=== PATIENT | male | born 1975 | race Caucasian/White ===

== ENCOUNTER 2018-04-23 21:25 | Emergency (ER) | payer BC ==
--- NOTE | 2018-04-23 21:48 | EDM.PDOC ---
ED HPI GENERAL MEDICAL PROBLEM - General Chief Complaint: Back Pain or Injury Stated Complaint: LOW BACK PAIN THAT GOES DOWN RIGHT LEG Time Seen by Provider: 04/23/18 21:48 Source of Information: Reports: Patient History Limitations: Reports: No Limitations - History of Present Illness INITIAL COMMENTS - FREE TEXT/NARRATIVE: 42-year-old male presents to the ED with severe right-sided low back pain. Patient states he suffers from chronic neck and low back pain for many years. Recent received a steroid injection in his neck due to an area of spinal stenosis and is scheduled next week for steroid injection in his lumbar spine as well. Patient sees the chiropractor almost every 10-14 days for an adjustment of his low back hips and/or neck. He did see the chiropractor earlier today because his back pain has been worse the last week or so. Back pain was very bad this morning when he got up and improved after chiropractic manipulation. Sherine ovaries developed severe spasm in his right lower back with certain movements causing him almost pass out or faint due to the severity of the pain. Radiates down the L5 nerve root distribution in his right leg. Bowel bladder function are normal. He believes he is walking okay just listing to the left side to take pressure off his right lower back. He states sitting makes the pain worse. No previous lumbar spine surgery. No known fractures Onset: Unknown/Unsure (Back pain off and on for many years. Worse the last few days) Onset Date: 04/21/18 (Severe pain right lower back with muscle spasm and radicular pain into the right buttock and leg down to the ankle.) Duration: Week(s):, Intermittent, Waxing/Waning Location: Reports: Back (Right low back pain), Radiates to (Right buttock right posterior thigh in the L5 nerve root distribution) Quality: Reports: Ache, Other (Intermittent severe small spasm) Severity: Severe Worsens with: Reports: Movement Context: Reports: Other (Intermittent chronic low back pain.). Denies: Activity (Last any movement causes severe exacerbation of the pain.), Exercise, Lifting, Sick Contact, Trauma Associated Symptoms: Reports: Nausea/Vomiting (Mild nausea due to the intensity of the pain.), Weakness. 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 Took a Tylenol extra strength tonight as well is also taken Flexeril 2 tablets over the last 6 hours.) Right Lower Back Pain Score (Numeric/FACES): 5 - Related Data Allergies Allergy/AdvReac Type Severity Reaction Status Date / Time No Known Allergies Allergy Verified 04/23/18 21:36 Home Meds: Home Meds Escitalopram Oxalate [Lexapro] 1 tab PO DAILY 04/23/18 [History] buPROPion [buPROPion XL] 1 tab PO DAILY 04/23/18 [History] oxyCODONE HCl/Acetaminophen [Percocet 5-325 mg Tablet] 1 - 2 each PO Q4H PRN # 30 tablet 04/23/18 [Rx] predniSONE [Deltasone] 20 mg PO ASDIRECTED #18 tablet 04/23/18 [Rx] Past Medical History Musculoskeletal History: Reports: Back Pain, Chronic, Neck Pain, Chronic ( Intermittent positive low back pain), Osteoarthritis ( chronic neck pain due to osteoarthritic and degenerative changes) Psychiatric History: Reports: Anxiety - Past Surgical History Musculoskeletal Surgical History: Reports: Shoulder Surgery Social & Family History - Tobacco Use Smoking Status *Q: Former Smoker Used Tobacco, but Quit: Yes Month/Year Tobacco Last Used: 6 - Caffeine Use Caffeine Use: Reports: None - Recreational Drug Use Recreational Drug Use: No - Living Situation & Occupation Living situation: Reports: Occupation: Employed ED ROS GENERAL - Review of Systems Review Of Systems: See Below Constitutional: Denies: Fever, Chills, Malaise, Fatigue, Decreased Appetite, Weight Loss HEENT: Reports: Glasses Respiratory: Reports: No Symptoms Cardiovascular: Reports: No Symptoms Endocrine: Reports: No Symptoms GI/Abdominal: Reports: No Symptoms : Reports: No Symptoms Musculoskeletal: Reports: Back Pain (See history of present illness) Skin: Reports: No Symptoms Neurological: Reports: Difficulty Walking (Due to right low back pain radiating to the right buttock groin and posterior right leg) Psychiatric: Reports: No Symptoms Hematologic/Lymphatic: Reports: No Symptoms Immunologic: Reports: No Symptoms ED EXAM,LOWER BACK PAIN/INJURY - Physical Exam Exam: See Below Exam Limited By: No Limitations General Appearance: Alert, WD/WN, Moderate Distress (In severe pain with movement. Prefers to lie on his back with his right leg flexed at the knee and the hip.) Eye Exam: Bilateral Eye: Normal Inspection Respiratory/Chest: No Respiratory Distress, Lungs Clear, Normal Breath Sounds, No Accessory Muscle Use, Chest Non-Tender, Prolonged Expiration Cardiovascular: Normal Peripheral Pulses, Regular Rate, Rhythm, No Edema, No Gallop, No Murmur, No Rub GI/Abdominal: Normal Bowel Sounds, Soft, Non-Tender, No Organomegaly, No Abnormal Bruit, No Mass, Pelvis Stable Back Exam: Decreased Range of Motion, Muscle Spasm (Dear paraspinal muscle spasm on the right side up to thoracic 6 level from L5.), Vertebral Tenderness ( 12 point of tenderness is probably the L3-L4 facet joint on the right side. The muscle spasm is severe in his lumbar spine area limiting ability to palpate). No: Full Range of Motion Extremities: Normal Inspection ( facet joints. There is no muscle spasm on the left side at all. He does have some mild sacroiliac joint pain of the right side as compared to the left on deep palpation.), Normal Range of Motion, Non- Tender, No Pedal Edema Neurological: Alert, Normal Mood/Affect, Normal Dorsiflexion, CN II-XII Intact, Normal Reflexes (3+ at the knees and), Oriented x 3, Straight Leg Raise (L) (260 easily with no bowstring sign.), Straight Leg Raise (R) (60 without evidence of nerve root entrapment.) DTR - Lower Extremities: 3+: Knee (R), Knee (L), Ankle (R), Ankle (L) Psychiatric: Normal Affect, Normal Mood Skin Exam: Warm, Dry, Intact, Normal Color, No Rash Course - Vital Signs Last Recorded V/S: Last Vital Signs Temp 36.8 C 04/23/18 21:30 Pulse 81 04/23/18 21:30 Resp 18 04/23/18 21:30 BP 159/100 H 04/23/18 21:30 Pulse Ox 95 04/23/18 21:30 - Orders/Labs/Meds Meds: Medications Discontinued Medications Generic Name Dose Route Start Last Admin Trade Name Freq PRN Reason Stop Dose Admin Oxycodone/Acetaminophen 2 tab 04/23/18 21:57 04/23/18 22:04 Percocet 325-5 Mg PO 04/23/18 21:58 2 tab ONETIME ONE Administration Prednisone 30 mg 04/23/18 21:57 04/23/18 22:04 Prednisone PO 04/23/18 21:58 30 mg ONETIME ONE Administration - Radiology Interpretation Free Text/Narrative:: Evaluation the emergency room tonight in regards to acute onset of severe right low back pain over the last several days but much worse tonight. Improved after chiropractic manipulation earlier today. Examination reveals severe paraspinal muscle spasm on the right side up to just underneath your shoulder blade on the right side. Maximal area of tenderness appears to be the L3-4 facet joint mid mid lower back. Clinically no evidence of nerve root entrapment or herniated disc. Treatment is therefore pain management. Percocet 5/325 mg tabs suggest 2 tablets every 4-6 hours needed for pain relief. Continue Advil 600 mg every 6 hours to reduce pain and inflammation. Deltasone her prednisone 20 mg with breakfast and supper for the next 6 days then 1 tab in the morning only for another 6 days to relieve inflammation if not markedly improved in 5 days time. Need to be reviewed by personal care physician. It is okay to see the chiropractor and follow-up if so desired. Patient will get his meds to the [facility] machine. Departure - Departure Time of Disposition: 22:09 Disposition: Home, Self-Care 01 Condition: Fair Clinical Impression: Acute mechanical low back pain with duration of less than six weeks - Discharge Information *PRESCRIPTION DRUG MONITORING PROGRAM REVIEWED*: No *COPY OF PRESCRIPTION DRUG MONITORING REPORT IN PATIENT NAIN: No Prescriptions: oxyCODONE HCl/Acetaminophen [Percocet 5-325 mg Tablet] 1 - 2 each PO Q4H PRN # 30 tablet PRN Reason: pain relief. predniSONE [Deltasone] 20 mg PO ASDIRECTED #18 tablet Instructions: Musculoskeletal Pain, Back Pain, Adult, [id number] Referrals: Marisol Moncada, ASSISTANT FILM EDITOR [Primary Care Provider] - Forms: ED Department Discharge Additional Instructions: Evaluation the emergency room today in regards to acute onset of severe right low back pain. Examination reveals paraspinal muscle spasm up underneath your right shoulder blade all the way down to your buttock. Assessment in the ED ED reveals marked paraspinal muscle spasm due to facet joint strain likely at the L3-L4 level in your lower back. Is no evidence of nerve entrapment on clinical examination or herniated disc. Treatment is to reduce the inflammation. Continue Motrin or Advil 600 mg every 6 hours until pain left side. Percocet tabs 5/325 mg 2 tablets every 64 hours as needed for pain relief. Deltasone 20 mg with breakfast and supper for 6 days and 1 tab in the morning only for another 6 days to relieve inflammation in the lower back. This will usually take at least a day and a half to work well. May apply ice or heat to the lower back. It is OK to follow-up with chiropractor so desired. Follow-up with personal care physician if not markedly improved in 5 days time.
[2018-04-23] MEDS ORDERED: predniSONE 20 MG Tab PO ONE (21:57)
[2018-04-23] MEDS ORDERED: Acetaminophen/oxyCODONE 325-5 MG Tab PO ONE (21:57)
== END 2018-04-23 22:35 | disposition home or self-care (01) ==
LOC: JD.ED 21:25
DX: M54.5 Low back pain (principal); F41.9 Anxiety disorder, unspecified; Z87.891 Personal history of nicotine dependence; Z79.899 Other long term (current) drug therapy
CPT/HCPCS: 99283; A9270; 99284

== ENCOUNTER 2019-11-17 15:48 | Emergency (ER) | payer BC ==
--- NOTE | 2019-11-17 16:07 | EDM.PDOC ---
ED HPI GENERAL MEDICAL PROBLEM - General Chief Complaint: Chest Pain Stated Complaint: CHEST PAIN,NUMBNESS IN LT ARM Time Seen by Provider: 11/17/19 15:57 - History of Present Illness INITIAL COMMENTS - FREE TEXT/NARRATIVE: 44-year-old male presents the emergency room with chest pain and left arm numbness. Patient thought this started from a neck strain. Patient's been lifting weights and has developed some discomfort in his neck. He thinks is radiating to his chest. He has some left arm discomfort with this as well. Patient has no prior history of coronary artery disease no family history of coronary artery disease patient is an ex-smoker he quit smoking 7 years ago gave up alcohol at the same time. Patient is treated for hypertension but not hyperlipidemia. Patient saw chiropractor yesterday this did not help. The patient may have been diaphoretic prior to coming in Left Chest Pain Score (Numeric/FACES): 10 Left Shoulder Pain Score (Numeric/FACES): 10 Left Arm Pain Score (Numeric/FACES): 10 - Related Data Allergies Allergy/AdvReac Type Severity Reaction Status Date / Time No Known Allergies Allergy Verified 04/23/18 21:36 Home Meds: Home Meds Escitalopram Oxalate [Lexapro] 20 mg PO DAILY 04/23/18 [History] buPROPion [buPROPion XL] 1 tab PO DAILY 04/23/18 [History] Cyclobenzaprine [Flexeril] 10 mg PO BEDTIME #10 tab 11/17/19 [Rx] amLODIPine [Norvasc] 5 mg PO DAILY 11/17/19 [History] lisinopriL [Lisinopril] 20 mg PO DAILY 11/17/19 [History] Past Medical History Musculoskeletal History: Reports: Back Pain, Chronic, Neck Pain, Chronic ( Intermittent positive low back pain), Osteoarthritis ( chronic neck pain due to osteoarthritic and degenerative changes) Psychiatric History: Reports: Anxiety - Past Surgical History Musculoskeletal Surgical History: Reports: Shoulder Surgery Social & Family History - Caffeine Use Caffeine Use: Reports: None - Living Situation & Occupation Living situation: Reports: Occupation: Employed ED ROS GENERAL - Review of Systems Review Of Systems: See Below Constitutional: Reports: No Symptoms HEENT: Reports: No Symptoms Respiratory: Reports: No Symptoms Cardiovascular: Reports: Chest Pain Endocrine: Reports: No Symptoms GI/Abdominal: Reports: No Symptoms : Reports: No Symptoms Musculoskeletal: Reports: No Symptoms Skin: Reports: No Symptoms ED EXAM, GENERAL - Physical Exam Exam: See Below Exam Limited By: No Limitations General Appearance: Alert, No Apparent Distress Head: Atraumatic, Normocephalic Neck: Normal Inspection, Supple, Non-Tender, Full Range of Motion, Other ( Significant discomfort left greater than right the paraspinous muscles from the base of the skull on down). No: Tender Midline Respiratory/Chest: No Respiratory Distress, Lungs Clear, Normal Breath Sounds Cardiovascular: Regular Rate, Rhythm, No Edema, No Murmur GI/Abdominal: Normal Bowel Sounds, Soft, Non-Tender Back Exam: Normal Inspection, Full Range of Motion. No: CVA Tenderness (L), CVA Tenderness (R) Extremities: Other (At the left wrist Tinel sign is positive with proximal and distal paresthesias.) Skin Exam: Warm, Dry, Intact EKG INTERPRETATION EKG Date: 11/17/19 Rhythm: NSR [place]: Normal QRS: RBBB (Complete versus interventricular conduction delay) ST-T: Normal QT: Normal PA/PQ Interval: Normal Comparison: NA - No Prior EKG (However, he did have a stress test done a year ago with encouraging results and comparison there shows no significant change) Course - Vital Signs Last Recorded V/S: Last Vital Signs Temp 37.4 C 11/17/19 16:03 Pulse 87 11/17/19 16:03 Resp BP 159/100 H 11/17/19 16:38 Pulse Ox - Orders/Labs/Meds Orders: Active Orders 24 hr Category Date Time Status EKG Documentation Completion [RC] STAT Care 11/17/19 16:07 Active Labs: Laboratory Tests 11/17/19 11/17/19 11/17/19 Range/Units 16:25 16:25 16:25 WBC 9.62 H (4.23-9.07) K/mm3 RBC 4.99 (4.63-6.08) M/mm3 Hgb 15.0 (13.7-17.5) gm/dl Hct 43.5 (40.1-51.0) % MCV 87.2 (79.0-92.2) fl MCH 30.1 (25.7-32.2) pg MCHC 34.5 (32.2-35.5) g/dl RDW Std Deviation 41.4 (35.1-43.9) fL Plt Count 255 (163-337) K/mm3 MPV 9.2 L (9.4-12.3) fl Neut % (Auto) 66.6 (34.0-67.9) % Lymph % (Auto) 20.3 L (21.8-53.1) % Kings % (Auto) 11.3 (5.3-12.2) % Eos % (Auto) 1.4 (0.8-7.0) Baso % (Auto) 0.3 (0.1-1.2) % Neut # (Auto) 6.41 H (1.78-5.38) K/mm3 Lymph # (Auto) 1.95 (1.32-3.57) K/mm3 Kings # (Auto) 1.09 H (0.30-0.82) K/mm3 Eos # (Auto) 0.13 (0.04-0.54) K/mm3 Baso # (Auto) 0.03 (0.01-0.08) K/mm3 PT 10.3 (9.7-12.0) SECONDS INR 0.94 APTT 26 (22-31) SECONDS Sodium 140 (136-145) mEq/L Potassium 3.7 (3.5-5.1) mEq/L Chloride 104 (98-107) mEq/L Carbon Dioxide 27 (21-32) mEq/L Anion Gap 12.7 (5-15) BUN 15 (7-18) mg/dL Creatinine 1.0 (0.7-1.3) mg/dL Est Cr Clr Drug Dosing 107.64 mL/min Estimated GFR (MDRD) > 60 (>60) mL/min BUN/Creatinine Ratio 15.0 (14-18) Glucose 96 (74-106) mg/dL Calcium 8.6 (8.5-10.1) mg/dL Total Bilirubin 0.5 (0.2-1.0) mg/dL AST 20 (15-37) U/L ALT 34 (16-63) U/L Alkaline Phosphatase 81 (46-116) U/L Troponin I < 0.017 (0.00-0.056) ng/mL Total Protein 7.4 (6.4-8.2) g/dl Albumin 4.0 (3.4-5.0) g/dl Globulin 3.4 gm/dL Albumin/Globulin Ratio 1.2 (1-2) Meds: Medications Discontinued Medications Generic Name Dose Route Start Last Admin Trade Name Linda PRN Reason Stop Dose Admin Aspirin 324 mg 11/17/19 16:08 11/17/19 16:29 Aspirin PO 11/17/19 16:09 324 mg ONETIME ONE Administration Nitroglycerin 0.4 mg 11/17/19 16:08 11/17/19 16:38 Nitrostat SL 0.4 mg Q5M PRN Administration Chest Pain - Re-Assessments/Exams Free Text/Narrative Re-Assessment/Exam: 11/17/19 17:43 Chest x-ray is unremarkable for acute cardiopulmonary changes EKG shows no acute changes developing right bundle branch block. Laboratory evaluation is unremarkable including negative troponin. Given the patient's had history of this discomfort for couple of days I do not believe a second troponin is can be very beneficial at this time. The patient can pressure aggravate his pain by lifting his shoulders up and moving his head neck. The patient does workout frequently and this does not make the pain worse. So I really do not think it is cardiac in origin I believe it is probably muscle skeletal indeed coming from his neck and/or shoulder he has some degree of carpal tunnel in his left hand I have recommended he get an [id number] carpal tunnel splint will start him on Flexeril at night only with close follow-up in the clinic. Departure - Departure Time of Disposition: 17:45 Disposition: Home, Self-Care 01 Clinical Impression: Cervical strain, acute, Thoracic myofascial strain, Carpal tunnel syndrome, left Referrals: Marisol Moncada, KAIAWHINA [Primary Care Provider] - Forms: ED Department Discharge Additional Instructions: Return to the emergency room with any questions problems or worsening symptoms. ticket sales supervisor your Flexeril take 1 at bedtime it does cause some sedation. Follow-up with your regular provider early next week for recheck. ticket sales supervisor an [id number] carpal tunnel splint to wear at nighttime only when you are sleeping on your left hand and wrist. Take a baby aspirin daily 81 mg preferably enteric-coated. Tylenol as needed for discomfort avoid Motrin Naprosyn or medications like that as they are tough on your blood pressure and increase the risk of heart attack and stroke Sepsis Event Note - Focused Exam Vital Signs: Vital Signs Temp Pulse BP BP 11/17/19 16:38 159/100 H 11/17/19 16:33 170/105 H 11/17/19 16:27 159/110 H 11/17/19 16:03 37.4 C 87 174/111 H Date Exam was Performed: 11/17/19 Time Exam was Performed: 17:42 - My Orders Last 24 Hours: My Active Orders 11/17/19 16:07 EKG Documentation Completion [RC] STAT - Assessment/Plan Last 24 Hours: My Active Orders 11/17/19 16:07 EKG Documentation Completion [RC] STAT
[2019-11-17] MEDS ORDERED: Aspirin 81 MG Tab.Chew PO ONE (16:08)
[2019-11-17] MEDS: Nitroglycerin 0.4 MG Tab.SL SL PRN ×3 (16:27→16:38)
--- NOTE | 2019-11-17 16:32 | CR ---
Chest: Portable view of the chest was obtained. Comparison: No prior chest imaging is available. Heart is enlarged. Pulmonary vessels are slightly increased which are believed to be chronic. No acute parenchymal change is seen. Bony structures shows prior surgery within the left shoulder. Impression: 1. Cardiomegaly and increased pulmonary vessels which are likely chronic. 2. Prior left shoulder surgery. 3. Nothing acute is suspected. Diagnostic code #2 This report was dictated in MDT
== END 2019-11-17 18:00 | disposition home or self-care (01) ==
LOC: JD.ED 15:48
DX: S16.1XXA Strain of muscle, fascia and tendon at neck level, initial encounter (principal); S29.012A Strain of muscle and tendon of back wall of thorax, initial encounter; G56.02 Carpal tunnel syndrome, left upper limb; M19.90 Unspecified osteoarthritis, unspecified site; F41.9 Anxiety disorder, unspecified; I45.10 Unspecified right bundle-branch block; Z79.899 Other long term (current) drug therapy; X50.0XXA Overexertion from strenuous movement or load, initial encounter
CPT/HCPCS: 36415; 71045; 80053; 84484; 85025; 85610; 85730; 93005; 99285; A9270; 93010; 99284

== ENCOUNTER → 2021-12-11 | Day surgery (SDC) | payer BC ==
[~2021-12-11] MED LIST: Acetaminophen 325 MG Tab PO SCH; HYDROmorphone 0.5 MG/0.5 ML Syringe IVPUSH PRN; Lactated Ringers 1,000 ML IV SCH; Lidocaine 1% 5 ML VIAL ONE; Lidocaine 1%/Sod Bicarbonate in NS 8.4% 1 ML Syringe IDERM PRN; Midazolam 1 MG/ML 2 ML SDV ONE; Morphine 8 MG, EPINEPHrine 0.3 MG, Cefuroxime 750 MG, Ketorolac 30 MG, Sodium Chloride ... PRN; Ondansetron 4 MG/2 ML SDV IVPUSH PRN; Pregabalin 25 MG Cap PO SCH; Propofol 200 MG/20 ML SDV ONE; Sodium Chloride 0.9% 10 ML Syringe FLUSH PRN; Sodium Chloride 0.9% 10 ML Syringe FLUSH SCH; Vancomycin 1 GM SDV ONE; ceFAZolin 1 GM Vial ONE; fentaNYL 100 MCG/2 ML SDV IVPUSH PRN; fentaNYL 100 MCG/2 ML SDV ONE; oxyCODONE 5 MG Tab PO ONE; oxyCODONE 5 MG Tab PO SCH; oxyCODONE ER 10 MG TAB.ER PO SCH
== END | disposition home or self-care (01) ==
LOC: JD.SDS 09:53
PROVIDERS: ATTEND Orthopaedic Surgery
DX: M16.11 Unilateral primary osteoarthritis, right hip (principal); F41.9 Anxiety disorder, unspecified; G47.33 Obstructive sleep apnea (adult) (pediatric); I11.0 Hypertensive heart disease with heart failure; I50.32 Chronic diastolic (congestive) heart failure; Z95.4 Presence of other heart-valve replacement; Z87.891 Personal history of nicotine dependence; J45.909 Unspecified asthma, uncomplicated
CPT/HCPCS: 0055T; 27130; 36415; 73501; 86850; 86900; 86901; 97110; 97116; 97161; A9270; C1713; C1776; J0171; J0690; J0697; J1885; J2250; J2270; J2370; J2704; J3010; J3370; J7120

== ENCOUNTER 2025-03-16 13:38 | Emergency (ER) | payer BC ==
[2025-03-16 14:35] LABS: BASOPHILS ABSOLUTE AUTO 0.1 K/mm3 (0.0-0.2); BASOPHILS PERCENT AUTO 1.4 % (0.0-1.0); EOSINOPHILS ABSOLUTE AUTO 0.1 K/mm3 (0.0-0.4); EOSINOPHILS PERCENT AUTO 1.7 % (0.0-6.0); IMMATURE GRAN ABSOLUTE AUTO 0.01 K/mm3 (0.00-0.05); IMMATURE GRAN PERCENT AUTO 0.2 % (0.0-0.4); LYMPHOCYTES ABSOLUTE AUTO 1.8 K/mm3 (1.0-4.8); LYMPHOCYTES PERCENT AUTO 31.6 % (24.0-44.0); MEAN PLATELET VOLUME 10.3 fl (9.4-12.4); MONOCYTES ABSOLUTE AUTO 0.6 K/mm3 (0.0-0.8); MONOCYTES PERCENT AUTO 10.9 % (0.0-8.0); NEUTROPHILS ABSOLUTE AUTO 3.1 K/mm3 (1.8-7.7); NEUTROPHILS PERCENT AUTO 54.2 % (41.0-71.0); NRBC ABSOLUTE 0.00 (0.00-0.02); NRBC PERCENT 0.0 % (0.0-0.2); PLATELET COUNT,PLT 252 K/mm3 (150-400); RED BLOOD CELL COUNT 4.84 M/mm3 (4.52-5.90); WHITE BLOOD CELL COUNT,WBC 5.76 K/mm3 (3.9-11.3)
[2025-03-16 15:05] LABS: A/G RATIO 1.2 (1-2); ALANINE AMINOTRANSFERASE,ALT 42.0 U/L (16-63); ASPARTATE AMNIOTRANSFERASE,AST 34.0 U/L (15-37); BILIRUBIN TOTAL 0.4 mg/dL (0.2-1.0); BLOOD UREA NITROGEN,BUN 20.0 mg/dL (7-18); CARBON DIOXIDE,CO2 32.0 mEq/L (21-32); CHLORIDE,CL 105.0 mEq/L (98-107); CREATININE 0.9 mg/dL (0.7-1.3); EST CRCL DRUG DOSING (CG) 113.44 mL/min; ESTIMATED GFR 105.0 mL/min (>60); GLUCOSE RANDOM 78.0 mg/dL (70-99); POTASSIUM,K 4.1 mEq/L (3.5-5.1); PROTEIN TOTAL,TP 6.9 g/dl (6.4-8.2); SODIUM,NA 144.0 mEq/L (136-145); TROPONIN I HIGH SENSITIVITY 12.0 pg/mL (<=76); TSH 2.083 uIU/mL (0.358-3.74)
[2025-03-16] MEDS: Iopamidol 755 Mg/ML 100 ML Bottle IVPUSH ONE (15:27)
== END 2025-03-16 16:35 | disposition home or self-care (01) ==
LOC: JD.ED 13:38
DX: I11.0 Hypertensive heart disease with heart failure (principal); I50.9 Heart failure, unspecified; Z79.899 Other long term (current) drug therapy
CPT/HCPCS: 36415; 71046; 71275; 80053; 84443; 84484; 85025; 85379; 93005; 99285; A9270; Q9967; 93010; 99283